=== PATIENT | female | born 2000 | race Two or more races ===

== ENCOUNTER 2024-07-05 15:19 | Outpatient (REF) | payer SELFPAY ==
[2024-07-05 16:14] LABS: MANUAL DIFF FLAG NO
[2024-07-05 16:21] LABS: Basophils Percent Auto 0.4 % (0-2); Eosinophils Absolute Auto 1.2 X10*3/uL (0.0-0.4); Eosinophils Percent Auto 11.8 % (0-4); Hematocrit 37.2 % (37.0-47.0); Hemoglobin 12.6 g/dl (12.0-16.0); Imm Gran Abs Auto 0.04 X10*3/uL (0.00-0.03); Imm Gran Pct Auto 0.4 % (0.0-0.4); Lymphocytes Absolute Auto 2.8 X10*3/uL (1.2-4.9); Mean Corpuscular HGB Conc 33.9 g/dl (31.0-35.0); Mean Corpuscular Volume 85.7 fL (80.0-98.0); Mean Platelet Volume 10.4 fL (9.4-12.3); Monocytes Absolute Auto 0.6 X10*3/uL (0.1-1.2); Monocytes Percent Auto 6.3 % (2-11); Neutrophils Absolute Auto 5.2 x10*3/uL (2.0-8.3); Neutrophils Percent Auto 53.1 % (45-73); Platelet Count 257 X10*3/uL (160-400); Red Blood Count 4.34 X10*6/uL (4.20-5.50); Red Cell Distribution Width 13.2 % (11.0-16.0); White Blood Count 9.9 X10*3/uL (4.8-10.8)
== END 2024-07-05 15:20 | disposition home or self-care (01) ==
LOC: HO.HHCL 15:19
PROVIDERS: Visit Provider Nurse Practitioner
DX: N64.4 Mastodynia (principal)
CPT/HCPCS: 36415; 85025

== ENCOUNTER 2024-07-09 15:15 | Emergency (ER) | payer MEDICAID, OTHER, SELFPAY ==
--- NOTE | ~2024-07-09 | US_ITS ---
EXAMINATION: US DIAGNOSTIC ULTRASOUND BREAST, limited right breast ultrasound. CLINICAL INFORMATION: Right breast pain in the area of palpable lumps lateral breast and upper outer quadrant.. COMPARISON: No prior imaging available for comparison. TECHNIQUE: Ultrasound of the breast is performed with real-time godfrey scale imaging and color Doppler. FINDINGS: Targeted color Doppler ultrasound scanning in the area of the patient's pain and palpable lumps from 8 12:00 in the lateral breast and upper outer quadrant demonstrates normal dense fibroglandular breast tissue. There is no sonographic abnormality to account for the patient's pain or palpable lumps. US/US breast RT limited IMPRESSION: Normal fibroglandular breast tissue seen from 8-12 o'clock no sonographic abnormality to account for the patient's right breast pain and palpable lumps. Recommend clinical evaluation and follow-up at this time. ASSESSMENT: BI-RADS 1: Negative RECOMMENDATION: Recommend clinical evaluation and follow-up. This patient's information was entered into a reminder system with a target due date for their next mammogram. Electronically signed by: Padmini Oates DO 07/12/2024 10:33 AM ALICE RAINES
[2024-07-09 15:39] VITALS: BP 95/56; PULSE 68; RESP 18; TEMP 36.7; O2SAT 100; BMI 24.5
--- NOTE | 2024-07-09 15:40 | ED_ITS ---
HPI - General Adult General Chief complaint: General Medical Stated complaint: breast infection Time Seen by Provider: 07/09/24 21:30 Source: patient, family, RN notes reviewed and electrical project manager (Morteza) Limitations: language barrier History of Present Illness HPI narrative: 23-year-old female presents for evaluation of right breast pain. Patient states she has been having waxing waning symptoms over the past approximately 2 months. Patient states she has several areas of tenderness and has felt some ?lumps?. Seeing waning however over the past several weeks it has been constant. She has tried. She went to urgent care today and was sent to the emergency department for further evaluation. She denies any fevers chills nausea or vomiting. She denies any nipple discharge. No skin changes. She denies any trauma. It does not change with her menses. No history of similar symptoms. She has not had any follow up. She denies history of breast malignancy. Patient has otherwise been feeling well Related Data Previous Rx's ?Medication ?Instructions ?Recorded naproxen 500 mg tablet 500 mg PO BID PRN pain 7 days #14 07/09/24 tabs Allergies Allergy/AdvReac Type Severity Reaction Status Date / Time No Known Allergies Allergy Verified 07/09/24 15:45 Review of Systems 2 Constitutional: Constitutional: Denies chills, Denies fever(s) and Denies headache(s) Eyes: Eyes: Denies change in vision and Denies other (No redness.) ENT: Denies headache(s), Denies nasal congestion, Denies nasal discharge, Denies neck pain and Denies sore throat Cardiovascular: Cardiovascular: Denies chest pain, Denies palpitations, Denies dyspnea, Denies dyspnea on exertion and Denies orthopnea Respiratory: Respiratory: Denies cough, Denies dyspnea and Denies dyspnea on exertion Gastrointestinal: Gastrointestinal: Denies abdominal pain, Denies melena, Denies hematochezia, Denies diarrhea, Denies nausea and Denies vomiting Genitourinary: Genitourinary: Denies nipple discharge, Denies dysuria and Denies urinary urgency Musculoskeletal: Musculoskeletal: Denies back pain, Denies muscle weakness, Denies neck pain and Denies numbness Integumentary/Breasts: Skin/Breast: Denies nipple discharge, Denies non- healing lesions, Denies erythema and Denies rash Neurologic: Denies headache(s), Denies focal weakness and Denies numbness Psychiatric: Psychiatric: Denies depression Endocrine: Endocrine: Denies palpitations PMFSH Social History Social History Advance Directives: No Advance Directives Information Provided: No Do you have a plan to hurt others: No Plan Physical Exam ED Vital Signs: Vital Signs - 24 hr 07/09/24 15:39 07/09/24 19:53 Temperature 98.0 F 96.8 F Pulse Rate 68 66 Respiratory Rate 18 16 Blood Pressure 95/56 L 114/73 Pulse Oximetry 100 98 Oxygen Delivery Method Room Air Room Air BMI result Body Mass Index 24.5 History and exam with female RN Carol Ann present. Const General: alert and awake Chest Other: No skin changes. No erythema or nipple discharge. No palpable nodules in the tail of Wall. No right axillary lymphadenopathy Chest/axillae images: 2 1. Tenderness 2. Tenderness, palpable firm area Resp Auscultation: clear to auscultation bilaterally Cardio Rate: regular rate Rhythm: regular rhythm Skin General skin exam: no rashes or lesions noted Course Course Course Narrative: This is a rapid medical exam performed by Wally Thomas NP: Additional HPI, ROS, PE not included below will be deferred to primary provider. Patient is a 23-year-old [place] speaking female presenting to the ED with complaint of right breast pain, multiple lumps. Seen at [facility] but they were unable to get urgent U/S to r/o abscesses. Plan: labs, U/S Medical Decision Making Medical Decision Making MDM Narrative: 23-year-old female with right breast pain for approximately 1 month. Preliminary ultrasound findings do not reveal any evidence of abscess or cellulitis. Concern for fibrous changes. These findings were discussed with the patient. Low suspicion for acute infection given physical exam findings as well as. Patient does not have any risk factors for malignancy. She does not have a OBGYN, therefore 1 will be provided via referral. I have reviewed all discharge instructions were director river restoration. She expresses understanding of all discharge instructions and has no further questions at this time. Differential Diagnosis Differential Diagnoses: The differential diagnosis associated with the presentation includes Malignancy Fibrous tissue Cellulitis Abscess Lymphadenopathy Lab Data [facility] Lab Attestation statement: I reviewed the patient's lab results. 07/09/24 17:42 07/09/24 17:42 Labs: Lab Results 07/09/24 Range/Units 17:42 WBC 10.5 (4.8-10.8) X10*3/uL RBC 4.39 (4.20-5.50) X10*6/uL Hgb 13.0 (12.0-16.0) g/dl Hct 37.8 (37.0-47.0) % MCV 86.1 (80.0-98.0) fL MCH 29.6 (27.0-33.0) pg MCHC 34.4 (31.0-35.0) g/dl RDW 13.3 (11.0-16.0) % Plt Count 231 (160-400) X10*3/uL MPV 10.3 (9.4-12.3) fL Immature Gran % (Auto) 0.2 (0.0-0.4) % Neut % (Auto) 55.0 (45-73) % Lymph % (Auto) 26.7 (20-40) % Ford % (Auto) 6.5 (2-11) % Eos % (Auto) 11.2 H (0-4) % Baso % (Auto) 0.4 (0-2) % Lymph # (Auto) 2.8 (1.2-4.9) X10*3/uL Ford # (Auto) 0.7 (0.1-1.2) X10*3/uL Eos # (Auto) 1.2 H (0.0-0.4) X10*3/uL Baso # (Auto) 0.0 (0.0-0.2) X10*3/uL Abs Immat Gran (auto) 0.02 (0.00-0.03) X10*3/uL Absolute Neuts (auto) 5.8 (2.0-8.3) x10*3/uL Absolute Nucleated RBC 0.000 (0.0-0.012) X10*3/uL Nucleated RBC % (auto) 0.0 (0.0-0.2) /100WBC Sodium 136 (135-145) mmol/L Potassium 3.9 (3.3-5.1) mmol/L Chloride 108 (96-108) mmol/L Carbon Dioxide 23 (22-29) mmol/L Anion Gap 9 L (12-20) BUN 10 (9-16) mg/dL Creatinine 0.69 (0.5-1.4) mg/dL Estim Creat Clear Calc 96.7 Estimated GFR > 60 Random Glucose 109 (60-115) mg/dL Calcium 9.0 (8.4-10.2) mg/dL Total Bilirubin 0.3 (0.0-1.0) mg/dL AST 22 (5-31) U/L ALT 14 (0-31) U/L Alkaline Phosphatase 63 (39-117) U/L Total Protein 7.4 (6.5-8.0) g/dL Albumin 4.2 (3.5-5.0) g/dL Radiology Impression Radiologist Impression: Preliminary ultrasound reading does not reveal any abscess, possible fibrous dense tissue Prescription Management I considered prescription management with: Pain Medication Discharge Plan Discharge Clinical Impression: Breast changes, fibrocystic Qualifiers: Laterality: right Qualified Code(s): N60.11 - Diffuse cystic mastopathy of right breast Patient Disposition: Home, Self-Care Instructions: Fibrocystic Breast Changes (ED) Additional Instructions: You may apply warm compresses to the affected area. Stop using ibuprofen. Try naproxen as directed. Take with food. Follow up with OBGYN referral, Dr. Trejo. Call 1st friday morning to schedule follow up appointment. Follow-up with your primary care provider. Call this week to schedule a follow- up appointment. Return to the emergency department if you have any worsening of symptoms, or any concerns. Get well soon! Prescriptions: New naproxen 500 mg tablet 500 mg PO BID PRN (Reason: pain) 7 Days Qty: 14 0RF Rx Instructions: Take with food. Referrals: Farhan Trejo MD [Physician] - 1 week (Right breast lumps, fibrous findings on US) Print Language: [place]
[2024-07-09 17:45] LABS: MANUAL DIFF FLAG NO
[2024-07-09 17:54] LABS: Basophils Percent Auto 0.4 % (0-2); Eosinophils Absolute Auto 1.2 X10*3/uL (0.0-0.4); Eosinophils Percent Auto 11.2 % (0-4); Hematocrit 37.8 % (37.0-47.0); Imm Gran Abs Auto 0.02 X10*3/uL (0.00-0.03); Imm Gran Pct Auto 0.2 % (0.0-0.4); Lymphocytes Absolute Auto 2.8 X10*3/uL (1.2-4.9); Lymphocytes Percent Auto 26.7 % (20-40); Mean Corpuscular HGB Conc 34.4 g/dl (31.0-35.0); Mean Corpuscular Hemoglobin 29.6 pg (27.0-33.0); Mean Corpuscular Volume 86.1 fL (80.0-98.0); Mean Platelet Volume 10.3 fL (9.4-12.3); Monocytes Absolute Auto 0.7 X10*3/uL (0.1-1.2); Monocytes Percent Auto 6.5 % (2-11); Neutrophils Absolute Auto 5.8 x10*3/uL (2.0-8.3); Platelet Count 231 X10*3/uL (160-400); Red Blood Count 4.39 X10*6/uL (4.20-5.50); Red Cell Distribution Width 13.3 % (11.0-16.0); White Blood Count 10.5 X10*3/uL (4.8-10.8)
[2024-07-09 18:03] LABS: Alanine Aminotransferase 14 U/L (0-31); Albumin Level 4.2 g/dL (3.5-5.0); Alkaline Phosphatase 63 U/L (39-117); Anion Gap 9 (12-20); Aspartate Amino Transferase 22 U/L (5-31); Bilirubin Total 0.3 mg/dL (0.0-1.0); Blood Urea Nitrogen 10 mg/dL (9-16); Carbon Dioxide 23 mmol/L (22-29); Chloride 108 mmol/L (96-108); Creatinine Clr Calc Pharmacy 96.7; Estimated Glomerular Filt Rate > 60; Glucose Random 109 mg/dL (60-115); Potassium 3.9 mmol/L (3.3-5.1); Sodium 136 mmol/L (135-145); Total Protein 7.4 g/dL (6.5-8.0)
[2024-07-09 19:53] VITALS: BP 114/73; PULSE 66; RESP 16; TEMP 36; O2SAT 98
[2024-07-09 22:26] VITALS: BP 105/66; PULSE 65; RESP 16; TEMP 36.1; O2SAT 100
== END 2024-07-09 22:32 | disposition home or self-care (01) ==
PROVIDERS: Registered Nurse Emergency; Emergency Provider Emergency Medicine
DX: N60.11 Diffuse cystic mastopathy of right breast (principal); N64.4 Mastodynia
CPT/HCPCS: 36415; 76642; 80053; 85025; 99284

== ENCOUNTER → 2024-07-09 15:47 | Outpatient (BNV) | payer MEDICAID, SELFPAY | PROVIDERS: Emergency Provider Emergency Medicine; Visit Provider Internal Medicine | DX: N63.11 Unspecified lump in the right breast, upper outer quadrant (principal) | CPT/HCPCS: 76642 ==